=== PATIENT | male | born 1955 | race Caucasian/White ===

== ENCOUNTER 2021-12-13 16:27 | Emergency (ER) | payer MEDICARE ==
[2021-12-13 18:27] LABS: ESTIMATED GFR 67 mL/min (>60); TROPONIN I HIGH SENSITIVITY 9.1 pg/mL (<=60.3)
[2021-12-13] MEDS ORDERED: Sodium Chloride 0.9% 10 ML Syringe FLUSH PRN (18:44)
[2021-12-13] MEDS ORDERED: Sodium Chloride 0.9% 1,000 ML IV SCH (18:45)
[2021-12-13] MEDS ORDERED: Sodium Chloride 0.9% 100 ML IV SCH (19:00)
[2021-12-13] MEDS ORDERED: Iopamidol 755 Mg/ML 100 ML Bottle IV SCH (19:00)
== END 2021-12-13 21:42 | disposition home or self-care (01) ==
LOC: JP.ED 16:27
DX: R55 Syncope and collapse (principal); E86.0 Dehydration; U09.9 Post COVID-19 condition, unspecified; I10 Essential (primary) hypertension; Z90.49 Acquired absence of other specified parts of digestive tract; Z79.899 Other long term (current) drug therapy; W01.198A Fall on same level from slipping, tripping and stumbling with subsequent striking against other object, initial encounter
CPT/HCPCS: 36415; 70450; 71275; 80053; 81001; 83605; 84484; 85025; 85379; 93005; 93010; 96360; 96361; 99282; 99284; J3490; J7030; Q9967